=== PATIENT | male | born 1965 | race African-American/Black ===

== ENCOUNTER 2018-08-21 22:31 | Emergency (ER) | payer MEDICAID ==
[~2018-08-21] VITALS: Ht 188 cm; Wt 114.0 kg
[2018-08-21 23:44] LABS: CHLORIDE 109 mEq/L (98-107)
[2018-08-21 23:47] LABS: BASOPHILS % 0.8 % (0.0-2.0); EOSINOPHILS % 4.9 % (0.0-5.0); HEMATOCRIT. 42.2 % (42.0-52.0); HEMOGLOBIN. 14.6 g/dL (14.0-18.0); LYMPHOCYTES % 36.8 % (20.0-50.0); MEAN CORPUSCULAR HEMOGLOBIN 32.3 pg (28.0-32.0); MEAN CORPUSCULAR VOLUME 93.4 fL (80.0-94.0); MEAN PLATELET VOLUME 8.7 fl (7.4-10.4); MONOCYTES % 10.1 % (2.0-8.0); NEUTROPHILS % 47.4 % (40.0-76.0); PLATELET 206 x1000/uL (130-400); RED BLOOD CELL COUNT 4.52 mill/uL (4.7-6.1); RED CELL DISTRIBUTION WIDTH 13.1 % (11.6-14.6)
[2018-08-21 23:48] LABS: ETHANOL BLOOD < 10 mg/dL
[2018-08-22 01:51] LABS: CLARITY URINE CLEAR (CLEAR); COLOR URINE YELLOW (YELLOW); KETONES URINE NEGATIVE (NEGATIVE); LEUKOCYTE ESTERASE URINE NEGATIVE (NEGATIVE); NITRITE URINE NEGATIVE (NEGATIVE); OCCULT BLOOD URINE NEGATIVE (NEGATIVE); PH URINE 5.5 (4.5-8.0); PROTEIN URINE NEGATIVE (NEGATIVE); SPECIFIC GRAVITY URINE 1.023 (1.005-1.030)
[2018-08-22 02:02] LABS: *AMPHETAMINES SCREEN URINE NEGATIVE (NEGATIVE); *BARBITURATES SCREEN URINE NEGATIVE (NEGATIVE); *BENZODIAZEPINES SCREEN URINE NEGATIVE (NEGATIVE); *COCAINE SCREEN URINE NEGATIVE (NEGATIVE)
[2018-08-22 02:03] LABS: CANNABINOID URINE SCREEN NEGATIVE (NEGATIVE); METHADONE URINE SCREEN NEGATIVE (NEGATIVE); OPIATES URINE SCREEN NEGATIVE (NEGATIVE); PHENCYCLIDINE URINE SCREEN NEGATIVE (NEGATIVE)
[2018-08-22] MEDS ORDERED: RISPERIDONE 0.5MG TABLET PO SCH (16:30)
[2018-08-23 08:31] VITALS: BP 106/78
== END 2018-08-23 08:57 | disposition home or self-care (01) ==
LOC: ER 22:31
DX: R45.851 Suicidal ideations (principal); F20.9 Schizophrenia, unspecified; R51 Headache
CPT/HCPCS: 36415; 80053; 80307; 80320; 80329; 85025; 99285; Z7610; G0480